=== PATIENT | female | born 1935 | race Caucasian/White ===

== ENCOUNTER 2018-02-06 10:17 | Emergency (ER) | payer OTHER ==
[~2018-02-06] VITALS: Ht 157.5 cm; Wt 72.6 kg
[~2018-02-06 10:17] MED LIST: ALBU3IS INH; ALLO300; ALLO300 PO; ALPR.25 PO; AMLO5 PO; CELE100 PO; CEPH500 PO; CHOL10002 PO; CITA20; CITA20 PO; COLC.6; COMBIVENT INHALER INH; COMBIVENT RESPIM4 GM IH; COMBIVENT RESPIM4 GM INH; CONESTTC VAG; COUMADIN; COUMADIN PO; CRUTCH4 USE; DOC250 PO; DULERA 100 MCG/13 GM IH; ENOX60I SC; ERGO400 PO; ERYT.5TO BOTHEYES; ESCI10 PO; EZET10; FENT25TP; FENT25TP TOP; FENT50TP; FENT50TP TOP; FIBER GUMMIES1 EACH PO; FLONASE ALLERG9.9 ML; FOLI1; FOLI1 PO; HYDACE10B PO; HYDACE5; HYDACE5 PO; HYOS0.375T PO; LAVAP17G PO; LEVFLO500 PO; LEVO750 PO; LEVOTHYROXIN; LEVSOD100; LEVSOD25; LEVSOD75 PO; LORA.5; LORA1; LORCET HD 10-31 EACH PO; MAG 64 PO; MAGCHL64ER PO; MAGN84 PO; MECL12.5 PO; MECL25; MECL25 PO; METH5; MISO100; Mucinex600 MG PO; NAPR500; NEBI10 PO; OMEP20ER; OMEP20ER PO; POLY17UD PO; POTA10T PO; POTCHL20ER; POTCHL20ER PO; PRAM.125; PRAM.5 PO; PRAV20 PO; PRED10 PO; PROM25; PROM25 PO; PROP10 PO; PROP40; Pravachol40 MG PO; Prilosec Otc20 MG PO; QUIN325; ROSU5 PO; TRAM50 PO; TRAZ50; TRAZ50 PO; TRIA80TC TOP; TRIHYD; VALS80 PO; WARF1; WARF1 PO; WARF10 PO; WARF4; WARF4 PO; WARF5; WARF5 PO; WARF6 PO
[2018-09-29] MEDS ORDERED: PROM25 PO (19:22)
[2018-09-29] MEDS ORDERED: MECL12.5 PO (19:22)
[2018-09-29] MEDS ORDERED: COMBIVENT RESPIM4 GM INH (19:23)
[2018-09-29] MEDS ORDERED: CHOL10002 PO (19:26)
[2018-09-29] MEDS ORDERED: TRAZ50 PO (19:27)
[2018-10-01] MEDS ORDERED: FENTANYL1 EAC1 TOP (11:04)
[2018-10-01] MEDS ORDERED: CEFP200 PO (11:07)
== END 2018-02-06 12:25 | disposition home or self-care (01) ==
LOC: ER 10:17
DX: S80.01XA Contusion of right knee, initial encounter (principal); Z88.0 Allergy status to penicillin; Z88.6 Allergy status to analgesic agent; Z88.5 Allergy status to narcotic agent; Z88.8 Allergy status to other drugs, medicaments and biological substances; Z79.899 Other long term (current) drug therapy; Z79.01 Long term (current) use of anticoagulants; Z87.891 Personal history of nicotine dependence; W01.0XXA Fall on same level from slipping, tripping and stumbling without subsequent striking against object, initial encounter
CPT/HCPCS: 73552; 73562-RT; 99283

== ENCOUNTER 2018-05-10 19:26 | Inpatient (IN) | payer OTHER ==
[~2018-05-10] VITALS: Ht 157.5 cm; Wt 59.5 kg
[2018-05-10 20:11] LABS: Alanine Aminotransfer (ALT/SGP 15 U/L (12-78); Albumin, Blood 3.5 g/dL (3.4-5.0); Albumin/Globulin Ratio 1.1 (0.8-1.8); Alk Phos 107 U/L (50-136); Anion Gap 5 mmol/L (6-16); Aspartate Aminotrans (AST/SGOT 16 U/L (12-37); Bilirubin, Total 0.6 mg/dL (0.1-1.0); Blood Urea Nitrogen 22 mg/dL (8-24); Bun/Creatinine Ratio 26.5 (12.0-20.0); CO2, Blood 35 mmol/L (21-32); Calcium, Blood 8.6 mg/dL (8.5-10.1); Chloride, Blood 101 mmol/L (98-108); Creatinine, Blood 0.83 mg/dL (0.40-1.00); Globulin, Blood 3.2 g/dL (2.2-4.0); Glomerular Filtration Rate >60 (60-); Glucose, Blood 154 mg/dL (70-99); Potassium, Blood 3.8 mmol/L (3.5-5.5); Sodium, Blood 141 mmol/L (136-145); Total Protein, Blood 6.7 g/dL (6.4-8.2)
[2018-05-10 20:16] LABS: BASOPHILS ABSOLUTE AUTO 0.01 K/mm3 (0.00-0.23); BASOPHILS PERCENT AUTO 0 % (0-2); EOSINOPHILS ABSOLUTE AUTO 0.36 K/mm3 (0.00-0.68); EOSINOPHILS PERCENT AUTO 4 % (0-6); Hematocrit 35.8 % (33.0-51.0); Hemoglobin 11.1 g/dL (11.5-16.0); IMMATURE GRAN ABSOLUTE AUTO 0.02 K/mm3 (0.00-0.10); IMMATURE GRAN PERCENT AUTO 0 % (0-1); LYMPHOCYTES ABSOLUTE AUTO 1.04 K/mm3 (0.84-5.20); LYMPHOCYTES PERCENT AUTO 13 % (21-46); MONOCYTES ABSOLUTE AUTO 0.39 K/mm3 (0.16-1.47); MONOCYTES PERCENT AUTO 5 % (4-13); Mean Corpuscular HGB 30.3 pg (26.0-34.0); Mean Corpuscular Volume 98 fL (80-100); Mean Platelet Volume 11.1 fL (9.1-12.4); NEUTROPHILS ABSOLUTE AUTO 6.47 K/mm3 (1.96-9.15); NEUTROPHILS PERCENT AUTO 78 % (41-73); Platelet Count 98 K/mm3 (150-400); RDW Standard Deviation 46.5 fL (35.1-46.3); Red Blood Cell Count 3.66 M/mm3 (3.80-5.20); White Blood Cell Count 8.29 K/mm3 (4.00-11.30)
[2018-05-10 20:32] LABS: International Normalized Ratio 2.31; Prothrombin Time Results 22.7 Sec (9.7-11.5)
[2018-05-11 11:49] LABS: International Normalized Ratio 1.68; Prothrombin Time Results 16.8 Sec (9.7-11.5)
[2018-05-12 05:36] LABS: BASOPHILS ABSOLUTE AUTO 0.02 K/mm3 (0.00-0.23); BASOPHILS PERCENT AUTO 0 % (0-2); EOSINOPHILS ABSOLUTE AUTO 0.35 K/mm3 (0.00-0.68); EOSINOPHILS PERCENT AUTO 5 % (0-6); Hematocrit 30.1 % (33.0-51.0); Hemoglobin 9.3 g/dL (11.5-16.0); IMMATURE GRAN ABSOLUTE AUTO 0.03 K/mm3 (0.00-0.10); IMMATURE GRAN PERCENT AUTO 1 % (0-1); LYMPHOCYTES ABSOLUTE AUTO 1.05 K/mm3 (0.84-5.20); LYMPHOCYTES PERCENT AUTO 16 % (21-46); MONOCYTES ABSOLUTE AUTO 0.39 K/mm3 (0.16-1.47); MONOCYTES PERCENT AUTO 6 % (4-13); Mean Corpuscular HGB 30.7 pg (26.0-34.0); Mean Corpuscular HGB Conc 30.9 g/dL (31.5-36.5); Mean Corpuscular Volume 99 fL (80-100); Mean Platelet Volume 11.2 fL (9.1-12.4); NEUTROPHILS ABSOLUTE AUTO 4.79 K/mm3 (1.96-9.15); NEUTROPHILS PERCENT AUTO 72 % (41-73); Platelet Count 70 K/mm3 (150-400); RDW Standard Deviation 46.9 fL (35.1-46.3); Red Blood Cell Count 3.03 M/mm3 (3.80-5.20); White Blood Cell Count 6.63 K/mm3 (4.00-11.30)
[2018-05-13 04:44] LABS: BASOPHILS ABSOLUTE AUTO 0.03 K/mm3 (0.00-0.23); BASOPHILS PERCENT AUTO 1 % (0-2); EOSINOPHILS ABSOLUTE AUTO 0.46 K/mm3 (0.00-0.68); EOSINOPHILS PERCENT AUTO 7 % (0-6); Hematocrit 30.2 % (33.0-51.0); Hemoglobin 9.4 g/dL (11.5-16.0); IMMATURE GRAN ABSOLUTE AUTO 0.01 K/mm3 (0.00-0.10); IMMATURE GRAN PERCENT AUTO 0 % (0-1); LYMPHOCYTES PERCENT AUTO 22 % (21-46); MONOCYTES ABSOLUTE AUTO 0.51 K/mm3 (0.16-1.47); MONOCYTES PERCENT AUTO 8 % (4-13); Mean Corpuscular HGB 30.2 pg (26.0-34.0); Mean Corpuscular HGB Conc 31.1 g/dL (31.5-36.5); Mean Corpuscular Volume 97 fL (80-100); Mean Platelet Volume 11.1 fL (9.1-12.4); NEUTROPHILS ABSOLUTE AUTO 3.83 K/mm3 (1.96-9.15); NEUTROPHILS PERCENT AUTO 61 % (41-73); Platelet Count 85 K/mm3 (150-400); RDW Standard Deviation 45.9 fL (35.1-46.3); Red Blood Cell Count 3.11 M/mm3 (3.80-5.20); White Blood Cell Count 6.24 K/mm3 (4.00-11.30)
== END 2018-05-13 13:55 | DRG 481 ==
LOC: ER 19:26 → SURS 22:10
PROVIDERS: Emergency Medicine; Internal Medicine; Orthopaedic Surgery
PROC: 0QH634Z Insertion of Internal Fixation Device into Right Upper Femur, Percutaneous Approach (ICD-10-PCS; principal; 2018-05-11 14:15)
DX: S72.091A Other fracture of head and neck of right femur, initial encounter for closed fracture (principal); J96.11 Chronic respiratory failure with hypoxia; I50.30 Unspecified diastolic (congestive) heart failure; W19.XXXA Unspecified fall, initial encounter; J44.9 Chronic obstructive pulmonary disease, unspecified; Z99.81 Dependence on supplemental oxygen; I11.0 Hypertensive heart disease with heart failure; E03.9 Hypothyroidism, unspecified; B19.20 Unspecified viral hepatitis C without hepatic coma; G47.33 Obstructive sleep apnea (adult) (pediatric); E78.5 Hyperlipidemia, unspecified; K21.9 Gastro-esophageal reflux disease without esophagitis; I73.9 Peripheral vascular disease, unspecified; Z87.891 Personal history of nicotine dependence; Z79.01 Long term (current) use of anticoagulants
CPT/HCPCS: 36415; 70450; 72192; 73552; 80053; 85025; 85610; 86900; 86901; 93005; 93010; 94762; 97110; 97116; 97162; 97165; 97530; 97535; 99285; C1713; C1769; G8978; G8979; G8987; G8988; J0690; J3010; J7030; J7120

== ENCOUNTER 2018-07-13 17:06 | Emergency (ER) | payer OTHER ==
[~2018-07-13] VITALS: Ht 157.5 cm; Wt 67.6 kg
[2018-07-13 17:51] LABS: BASOPHILS ABSOLUTE AUTO 0.03 K/mm3 (0.00-0.23); BASOPHILS PERCENT AUTO 0 % (0-2); EOSINOPHILS ABSOLUTE AUTO 0.09 K/mm3 (0.00-0.68); EOSINOPHILS PERCENT AUTO 1 % (0-6); Hematocrit 34.2 % (33.0-51.0); Hemoglobin 10.9 g/dL (11.5-16.0); IMMATURE GRAN ABSOLUTE AUTO 0.01 K/mm3 (0.00-0.10); IMMATURE GRAN PERCENT AUTO 0 % (0-1); LYMPHOCYTES ABSOLUTE AUTO 2.17 K/mm3 (0.84-5.20); LYMPHOCYTES PERCENT AUTO 29 % (21-46); MONOCYTES ABSOLUTE AUTO 0.62 K/mm3 (0.16-1.47); MONOCYTES PERCENT AUTO 8 % (4-13); Mean Corpuscular HGB 30.7 pg (26.0-34.0); Mean Corpuscular HGB Conc 31.9 g/dL (31.5-36.5); Mean Corpuscular Volume 96 fL (80-100); Mean Platelet Volume 11.3 fL (9.1-12.4); NEUTROPHILS ABSOLUTE AUTO 4.53 K/mm3 (1.96-9.15); NEUTROPHILS PERCENT AUTO 61 % (41-73); Platelet Count 143 K/mm3 (150-400); RDW Coefficient Variation 12.8 % (11.7-14.2); RDW Standard Deviation 45.6 fL (35.1-46.3); Red Blood Cell Count 3.55 M/mm3 (3.80-5.20); White Blood Cell Count 7.45 K/mm3 (4.00-11.30)
[2018-07-13 18:04] LABS: Albumin, Blood 3.2 g/dL (3.4-5.0); Albumin/Globulin Ratio 1.1 (0.8-1.8); Bilirubin, Total 0.2 mg/dL (0.1-1.0); Calcium, Blood 8.4 mg/dL (8.5-10.1); Creatinine, Blood 1.84 mg/dL (0.40-1.00); International Normalized Ratio 2.54; Potassium, Blood 4.8 mmol/L (3.5-5.5); Prothrombin Time Results 24.8 Sec (9.7-11.5); Total Protein, Blood 6.2 g/dL (6.4-8.2)
[2018-07-13 18:23] LABS: Source, Urine Clean Catch
[2018-07-13 18:26] LABS: Appearance, Urine Hazy (Clear); Bilirubin, Urine Neg (Neg); Blood, Urine 1+ (Neg); Color, Urine Yellow (P-Yellow); Glucose Qualitative, Urine Neg (Neg); Ketones, Urine Neg (Neg); Leukocyte Esterase, Urine 3+ (Neg); Nitrite, Urine Neg (Neg); Protein, Urine 1+ (Neg); Specific Gravity, Urine 1.015 (1.003-1.022); Urobilinogen, Urine 1+ (Normal)
[2018-07-13 18:34] LABS: Bacteria Many /hpf; Squamous Epithelial Cells Few /hpf (Few); White Blood Cells, Urine 25-50 /hpf (0-5)
[2018-07-13] MEDS ORDERED: CEPH500 PO (19:03)
== END 2018-07-13 19:54 | disposition home or self-care (01) ==
LOC: ER 17:06
PROVIDERS: Emergency Medicine
DX: N39.0 Urinary tract infection, site not specified (principal); Z88.0 Allergy status to penicillin; Z88.6 Allergy status to analgesic agent; Z88.5 Allergy status to narcotic agent; Z88.1 Allergy status to other antibiotic agents; Z88.8 Allergy status to other drugs, medicaments and biological substances; Z79.899 Other long term (current) drug therapy; Z79.01 Long term (current) use of anticoagulants; Z87.891 Personal history of nicotine dependence
CPT/HCPCS: 80053; 81001; 85025; 85610; 85730; 87077; 87086; 87186; 93005; 93010; 96374; 99285-25; J0696

== ENCOUNTER → 2018-11-30 | Outpatient (CLI) | payer OTHER ==
[~2018-11-30] MED LIST changes: +CEFP200 PO; +FENTANYL1 EAC1 TOP
[2018-11-30 12:02] LABS: Alanine Aminotransfer (ALT/SGP 11 U/L (12-78); Albumin, Blood 3.4 g/dL (3.4-5.0); Albumin/Globulin Ratio 1.3 (0.8-1.8); Alk Phos 98 U/L (50-136); Anion Gap 3 mmol/L (6-16); Aspartate Aminotrans (AST/SGOT 12 U/L (12-37); Bilirubin, Total 0.3 mg/dL (0.1-1.0); Blood Urea Nitrogen 23 mg/dL (8-24); Bun/Creatinine Ratio 24.6 (12.0-20.0); CO2, Blood 35 mmol/L (21-32); Calcium, Blood 8.6 mg/dL (8.5-10.1); Chloride, Blood 103 mmol/L (98-108); Creatinine, Blood 0.93 mg/dL (0.40-1.00); Globulin, Blood 2.7 g/dL (2.2-4.0); Glomerular Filtration Rate >60 (60-); Glucose, Blood 98 mg/dL (70-99); Potassium, Blood 4.1 mmol/L (3.5-5.5); Sodium, Blood 141 mmol/L (136-145); Total Protein, Blood 6.1 g/dL (6.4-8.2)
== END | disposition home or self-care (01) ==
LOC: LAB 11:34 → LAB SHORT 11:34
PROVIDERS: Internal Medicine Hematology & Oncology
DX: M81.0 Age-related osteoporosis without current pathological fracture (principal)
CPT/HCPCS: 80053

== ENCOUNTER → 2019-05-19 | Outpatient (CLI) | payer OTHER ==
[2019-05-19 17:11] LABS: Source, Urine Clean Catch
[2019-05-19 17:49] LABS: Bilirubin, Urine Neg (Neg); Blood, Urine 2+ (Neg); Glucose Qualitative, Urine Neg (Neg); Ketones, Urine Neg (Neg); Leukocyte Esterase, Urine Neg (Neg); Nitrite, Urine Neg (Neg); Protein, Urine Neg (Neg); Urobilinogen, Urine NORM (Normal)
[2019-05-19 18:01] LABS: Appearance, Urine Clear (Clear); Color, Urine Pale Yellow (P-Yellow)
[2019-05-19 18:04] LABS: Bacteria Not Seen /hpf; Red Blood Cells, Urine 0-2 /hpf (0-2); Renal Epithelial Few /hpf ({null, 0-Rare}); Squamous Epithelial Cells Mod /hpf (Few); Transitional Epithelial Cells Few /hpf ({null, 0-Rare}); White Blood Cells, Urine 0-2 /hpf (0-5)
== END | disposition home or self-care (01) ==
LOC: LAB SHORT 16:00 → LAB 16:00 → LAB FUT 05-09 13:15
PROVIDERS: Internal Medicine
DX: N39.0 Urinary tract infection, site not specified (principal)
CPT/HCPCS: 81001

== ENCOUNTER 2020-01-07 10:58 | Emergency (ER) | payer OTHER ==
[~2020-01-07] VITALS: Ht 152.4 cm; Wt 70.8 kg
[2020-01-07 12:01] LABS: BASOPHILS ABSOLUTE AUTO 0.02 K/mm3 (0.00-0.23); BASOPHILS PERCENT AUTO 0 % (0-2); EOSINOPHILS ABSOLUTE AUTO 0.05 K/mm3 (0.00-0.68); EOSINOPHILS PERCENT AUTO 1 % (0-6); Hemoglobin 9.2 g/dL (11.5-16.0); IMMATURE GRAN ABSOLUTE AUTO 0.03 K/mm3 (0.00-0.10); IMMATURE GRAN PERCENT AUTO 0 % (0-1); LYMPHOCYTES ABSOLUTE AUTO 1.26 K/mm3 (0.84-5.20); LYMPHOCYTES PERCENT AUTO 18 % (21-46); MONOCYTES ABSOLUTE AUTO 0.66 K/mm3 (0.16-1.47); MONOCYTES PERCENT AUTO 9 % (4-13); Mean Corpuscular HGB 30.8 pg (26.0-34.0); Mean Corpuscular HGB Conc 28.8 g/dL (31.5-36.5); Mean Corpuscular Volume 107 fL (80-100); Mean Platelet Volume 11.3 fL (9.1-12.4); NEUTROPHILS ABSOLUTE AUTO 4.98 K/mm3 (1.96-9.15); NEUTROPHILS PERCENT AUTO 71 % (41-73); Platelet Count 146 K/mm3 (150-400); RDW Coefficient Variation 13.2 % (11.7-14.2); RDW Standard Deviation 52.1 fL (35.1-46.3); Red Blood Cell Count 2.99 M/mm3 (3.80-5.20)
[2020-01-07 12:21] LABS: Alanine Aminotransfer (ALT/SGP 11 U/L (12-78); Albumin/Globulin Ratio 0.9 (0.8-1.8); Alk Phos 92 U/L (50-136); Anion Gap 1 mmol/L (6-16); Aspartate Aminotrans (AST/SGOT 22 U/L (12-37); Bilirubin, Total 0.4 mg/dL (0.1-1.0); Blood Urea Nitrogen 22 mg/dL (8-24); Bun/Creatinine Ratio 12.8 (12.0-20.0); CO2, Blood 29 mmol/L (21-32); Calcium, Blood 8.1 mg/dL (8.5-10.1); Chloride, Blood 110 mmol/L (98-108); Creatinine, Blood 1.72 mg/dL (0.40-1.00); Globulin, Blood 3.2 g/dL (2.2-4.0); Glomerular Filtration Rate 30 (60-); Glucose, Blood 101 mg/dL (70-99); Potassium, Blood 5.7 mmol/L (3.5-5.5); Sodium, Blood 140 mmol/L (136-145); Total Protein, Blood 6.2 g/dL (6.4-8.2); Troponin I <0.015 ng/mL (0.000-0.040)
[2020-01-07 12:31] LABS: Source, Urine Clean Catch
[2020-01-07 12:36] LABS: Bilirubin, Urine Neg (Neg); Blood, Urine 4+ (Neg); Glucose Qualitative, Urine Neg (Neg); Ketones, Urine Neg (Neg); Leukocyte Esterase, Urine Neg (Neg); Nitrite, Urine Neg (Neg); Protein, Urine 3+ (Neg); Specific Gravity, Urine 1.015 (1.003-1.022); Urobilinogen, Urine 1+ (Normal)
[2020-01-07 12:38] LABS: Appearance, Urine Hazy (Clear); Color, Urine Yellow (P-Yellow)
[2020-01-07 12:50] LABS: Amorphous Light (0-Heavy); Bacteria Few /hpf; Red Blood Cells, Urine 25-50 /hpf (0-2); Squamous Epithelial Cells Few /hpf (Few)
[2020-01-07 12:51] LABS: Transitional Epithelial Cells Mod /hpf (0-Rare)
[2020-01-07 13:54] LABS: International Normalized Ratio 2.67
[2020-01-07] MEDS ORDERED: CEFD300 PO (14:22)
== END 2020-01-07 16:17 | disposition home or self-care (01) ==
LOC: ER 10:58
PROVIDERS: Emergency Medicine
DX: E87.5 Hyperkalemia (principal); E86.0 Dehydration; N39.0 Urinary tract infection, site not specified; Z88.0 Allergy status to penicillin; Z79.899 Other long term (current) drug therapy; Z87.891 Personal history of nicotine dependence
CPT/HCPCS: 36415; 80053; 81001; 84484; 85025; 85610; 87086; 93005; 93010; 96361; 96365; 96366; 99284-25; J0696; J7030

== ENCOUNTER 2020-01-11 18:32 | Observation (INO) | payer OTHER ==
[~2020-01-11] VITALS: Ht 152.4 cm; Wt 73.7 kg
[~2020-01-11 18:32] MED LIST changes: +CEFD300 PO
[2020-01-11 22:21] LABS: Source, Urine Clean Catch
[2020-01-11 22:25] LABS: Bilirubin, Urine Neg (Neg); Blood, Urine 2+ (Neg); Glucose Qualitative, Urine 2+ (Neg); Ketones, Urine Neg (Neg); Leukocyte Esterase, Urine Neg (Neg); Nitrite, Urine Neg (Neg); Protein, Urine 3+ (Neg); Urobilinogen, Urine NORM (Normal)
[2020-01-11 22:34] LABS: Appearance, Urine Hazy (Clear); Color, Urine Yellow (P-Yellow)
[2020-01-11 22:36] LABS: Amorphous Mod (0-Heavy); Bacteria Few /hpf; Red Blood Cells, Urine 0-2 /hpf (0-2); Squamous Epithelial Cells Rare /hpf (Few); White Blood Cells, Urine 0-2 /hpf (0-5)
[2020-01-11 23:07] LABS: BASOPHILS ABSOLUTE AUTO 0.02 K/mm3 (0.00-0.23); BASOPHILS PERCENT AUTO 0 % (0-2); EOSINOPHILS ABSOLUTE AUTO 0.05 K/mm3 (0.00-0.68); EOSINOPHILS PERCENT AUTO 1 % (0-6); Hematocrit 30.6 % (33.0-51.0); Hemoglobin 9.1 g/dL (11.5-16.0); IMMATURE GRAN ABSOLUTE AUTO 0.03 K/mm3 (0.00-0.10); IMMATURE GRAN PERCENT AUTO 1 % (0-1); LYMPHOCYTES ABSOLUTE AUTO 1.43 K/mm3 (0.84-5.20); LYMPHOCYTES PERCENT AUTO 23 % (21-46); MONOCYTES ABSOLUTE AUTO 0.52 K/mm3 (0.16-1.47); MONOCYTES PERCENT AUTO 8 % (4-13); Mean Corpuscular HGB 31.2 pg (26.0-34.0); Mean Corpuscular HGB Conc 29.7 g/dL (31.5-36.5); Mean Corpuscular Volume 105 fL (80-100); Mean Platelet Volume 10.9 fL (9.1-12.4); NEUTROPHILS ABSOLUTE AUTO 4.11 K/mm3 (1.96-9.15); NEUTROPHILS PERCENT AUTO 67 % (41-73); Platelet Count 148 K/mm3 (150-400); RDW Coefficient Variation 13.1 % (11.7-14.2); RDW Standard Deviation 49.9 fL (35.1-46.3); Red Blood Cell Count 2.92 M/mm3 (3.80-5.20); White Blood Cell Count 6.16 K/mm3 (4.00-11.30)
[2020-01-11 23:26] LABS: Bilirubin, Total 0.4 mg/dL (0.1-1.0); Bun/Creatinine Ratio 6.9 (12.0-20.0); Calcium, Blood 8.5 mg/dL (8.5-10.1); Creatinine, Blood 2.16 mg/dL (0.40-1.00); Potassium, Blood 4.8 mmol/L (3.5-5.5)
[2020-01-12 01:40] LABS: Prothrombin Time Results 56.1 Sec (9.7-11.5)
[2020-01-12 01:43] LABS: International Normalized Ratio 5.79
--- NOTE | 2020-01-12 06:55 | NUR ---
recvd report from previous shift RN Todd, alireza lying in bed, a/o x 4, pleasant/cooperative, call light within reach, bed rails up x 2, bed in lowest position
--- NOTE | 2020-01-12 07:49 | NUR ---
SHIFT SUMMARY PT NEW ADMIT THIS AM. AAOX4. CHRONIC BACK PAIN CONTROLLED WITH 25mcg FENTANYL X1 THIS AM. NO NAUSEA/EMESIS. HOME MEDICATION LIST TO BE VERIFIED BY CAREGIVER UPON RETURN THIS AM. IVF PER ORDERS. PT UP TO BSC WITH FWW, MODERATE ONE PERSON ASSIST. PT RESTING AT THIS TIME IN BED, NADN, WITH CALL LIGHT IN REACH. REPORT TO DAY SHIFT RN.
[2020-01-12 08:09] LABS: Hematocrit 27.8 % (33.0-51.0); Hemoglobin 8.3 g/dL (11.5-16.0); Mean Corpuscular HGB Conc 29.9 g/dL (31.5-36.5); Mean Corpuscular Volume 104 fL (80-100); Mean Platelet Volume 10.9 fL (9.1-12.4); Platelet Count 128 K/mm3 (150-400); RDW Standard Deviation 49.4 fL (35.1-46.3); Red Blood Cell Count 2.68 M/mm3 (3.80-5.20); White Blood Cell Count 5.19 K/mm3 (4.00-11.30)
[2020-01-12 08:26] LABS: Albumin, Blood 2.7 g/dL (3.4-5.0); Albumin/Globulin Ratio 0.9 (0.8-1.8); Bilirubin, Total 0.3 mg/dL (0.1-1.0); Bun/Creatinine Ratio 6.6 (12.0-20.0); Calcium, Blood 8.3 mg/dL (8.5-10.1); Creatinine, Blood 1.96 mg/dL (0.40-1.00); Globulin, Blood 2.9 g/dL (2.2-4.0); Total Protein, Blood 5.6 g/dL (6.4-8.2)
[2020-01-12] MEDS ORDERED: Vitamin D2000 UNIT PO (10:55)
[2020-01-12] MEDS ORDERED: COMBIVENT RESPIM4 GM INH (10:57)
[2020-01-12] MEDS ORDERED: LEVSOD75 PO (10:58)
[2020-01-12] MEDS ORDERED: LEVSOD100 PO (10:58)
[2020-01-12] MEDS ORDERED: PRAM.125 PO (11:00)
[2020-01-12] MEDS ORDERED: PRAM.5 PO (11:01)
[2020-01-12] MEDS ORDERED: TRAZ50 PO (11:02)
[2020-01-12] MEDS ORDERED: HYOS0.375T PO (11:03)
[2020-01-12] MEDS ORDERED: MIRALAX17 GM PO (11:04)
[2020-01-12] MEDS ORDERED: POTCHL20ER PO (11:05)
[2020-01-12] MEDS ORDERED: IRBE75 PO (11:05)
--- NOTE | 2020-01-12 18:34 | NUR ---
shift summary: vss, no acute changes. pt remained a/o x 4, pleasant/cooperative. pt worked with PT, able to transfer to bedside commode with gait belt and fww. pt tolerated PO intake no n/v. pt's caregiver/friend here a large portion of this shift, provided home med rec and updates. urine output >500 ml this shift. PT had liquid stool x 4 this shift. pt on 2.5L NC with SPO2 >90%
--- NOTE | 2020-01-13 04:29 | NUR ---
SHIFT SUMMARY NO ACUTE CHANGES THIS SHIFT. PT A/OX4 WITH VSS, ON 2.5L NC W/ SPO2> 90%. MEDICATED X1 FOR CHRONIC BACK/LEG PAIN. ABLE TO TRANSFER FROM BED TO C W/FWW AND GB. TOLERATING PO INTAKE, DENIES N/V. IS CURRENTLY WATCHING TV IN BED WITH CALL LIGHT IN REACH. ODALIS CONT TO MONITOR AND GIVE REPORT TO ONCOMING RN.
[2020-01-13 05:56] LABS: Bun/Creatinine Ratio 10.4 (12.0-20.0); Calcium, Blood 8.7 mg/dL (8.5-10.1); Creatinine, Blood 1.64 mg/dL (0.40-1.00); Potassium, Blood 3.2 mmol/L (3.5-5.5)
[2020-01-13 06:08] LABS: International Normalized Ratio 2.06; Prothrombin Time Results 21.2 Sec (9.7-11.5)
== END 2020-01-13 15:00 | disposition home or self-care (01) ==
LOC: ER 18:32 → SURS 18:33
PROVIDERS: Emergency Medicine; Hospitalist; ADMIT Internal Medicine
DX: N17.9 Acute kidney failure, unspecified (principal); I12.9 Hypertensive chronic kidney disease with stage 1 through stage 4 chronic kidney disease, or unspecified chronic kidney disease; N18.3 Chronic kidney disease, stage 3 (moderate); J44.9 Chronic obstructive pulmonary disease, unspecified; E03.9 Hypothyroidism, unspecified; Z79.899 Other long term (current) drug therapy; Z88.0 Allergy status to penicillin; Z88.5 Allergy status to narcotic agent; Z88.8 Allergy status to other drugs, medicaments and biological substances; M19.90 Unspecified osteoarthritis, unspecified site
CPT/HCPCS: 36415; 73502; 76770; 80048; 80053; 81001; 83880; 85025; 85027; 85610; 94640; 94760; 96360; 96361; 96374; 96376; 97110; 97161; 97530; 99284-25; A9270-GY; G0378; J3010; J7030

== ENCOUNTER 2020-05-09 01:41 | Emergency (ER) | payer OTHER ==
[~2020-05-09] VITALS: Ht 157.5 cm; Wt 68.0 kg
[~2020-05-09 01:41] MED LIST changes: +IRBE75 PO; +LEVSOD100 PO; +MIRALAX17 GM PO; +PRAM.125 PO; +Vitamin D2000 UNIT PO
[2020-05-09] MEDS ORDERED: ALPR.5 PO (01:51)
[2020-05-09] MEDS ORDERED: NEBI10 PO (01:52)
[2020-05-09] MEDS ORDERED: CELE100 PO (01:53)
[2020-05-09] MEDS ORDERED: DULERA 100 MCG/13 GM INH (01:54)
[2020-05-09] MEDS ORDERED: ESCI10 PO (01:55)
[2020-05-09] MEDS ORDERED: HYDACE10B PO (01:56)
[2020-05-09] MEDS ORDERED: MECL25 PO (01:57)
[2020-05-09] MEDS ORDERED: PROM25 PO (01:58)
[2020-05-09] MEDS ORDERED: VALS80 PO (01:59)
[2020-05-09] MEDS ORDERED: AMLO5 PO (02:00)
== END 2020-05-09 04:36 | disposition home or self-care (01) ==
LOC: ER 01:41
DX: M25.552 Pain in left hip (principal); Z79.01 Long term (current) use of anticoagulants; Z87.891 Personal history of nicotine dependence; W06.XXXA Fall from bed, initial encounter
CPT/HCPCS: 73030; 73502; 99283-25

== ENCOUNTER → 2020-06-09 | Outpatient (CLI) | payer OTHER ==
[~2020-06-09] MED LIST changes: +ALPR.5 PO; +AVAPRO300 MG PO; +B-121000 MC3 PO; +DULERA 100 MCG/13 GM INH; +FENTANYL1 EAC7 TOP; +MAGNESIUM OXID500 MG PO; -PRAV20 PO
[2020-06-11 20:48] LABS: Stool Occult Blood Guaiac 1 Pos (Neg)
[2020-06-11 20:49] LABS: Stool Occult Blood Guaiac 2 Neg (Neg)
== END | disposition home or self-care (01) ==
LOC: LAB 18:10 → LAB SHORT 18:10 → LAB FUT 05-30 11:00
PROVIDERS: Internal Medicine
DX: D64.9 Anemia, unspecified (principal); E78.1 Pure hyperglyceridemia; I48.20 Chronic atrial fibrillation, unspecified; R79.89 Other specified abnormal findings of blood chemistry
CPT/HCPCS: 82272

== ENCOUNTER → 2021-02-14 | Outpatient (CLI) | payer OTHER ==
[~2021-02-14] MED LIST changes: +ERYT1OIN BOTHEYES; +MELA3 PO
[2021-02-14 12:42] LABS: Source, Urine Clean Catch
[2021-02-14 14:14] LABS: Appearance, Urine Hazy (Clear); Bilirubin, Urine Neg (Neg); Blood, Urine 3+ (Neg); Color, Urine Yellow (P-Yellow); Glucose Qualitative, Urine Neg (Neg); Ketones, Urine Neg (Neg); Leukocyte Esterase, Urine 2+ (Neg); Nitrite, Urine Neg (Neg); Protein, Urine 1+ (Neg); Specific Gravity, Urine 1.005 (1.003-1.022); Urobilinogen, Urine NORM (Normal)
[2021-02-14 14:21] LABS: White Blood Cells, Urine 50-100 /hpf (0-5)
[2021-02-14 14:22] LABS: Bacteria Many /hpf; Squamous Epithelial Cells Few /hpf (Few)
[2021-02-14 14:24] LABS: Transitional Epithelial Cells Few /hpf (0-Rare)
== END | disposition home or self-care (01) ==
LOC: EDSTATUS 08:42 → LAB 12:40 → LAB SHORT 12:40
PROVIDERS: Internal Medicine
DX: R30.0 Dysuria (principal)
CPT/HCPCS: 81001; 87077; 87086; 87186

== ENCOUNTER 2021-04-20 17:08 | Emergency (ER) | payer OTHER ==
[~2021-04-20] VITALS: Ht 157.5 cm; Wt 66.7 kg
[~2021-04-20 17:08] MED LIST changes: -ERYT1OIN BOTHEYES; -MELA3 PO
[2021-04-20] MEDS ORDERED: MELA3 PO (17:36)
[2021-04-20] MEDS ORDERED: PRAM.5 PO (17:36)
[2021-04-20] MEDS ORDERED: MECL25 PO (17:36)
[2021-04-20] MEDS ORDERED: ALLO300 PO (17:36)
[2021-04-20] MEDS ORDERED: ERYT1OIN BOTHEYES (17:37)
[2021-04-20] MEDS ORDERED: CELE100 PO (17:38)
[2021-04-20] MEDS ORDERED: HYOS0.375T PO (17:38)
[2021-04-20 18:25] LABS: International Normalized Ratio 2.65; Prothrombin Time Results 27.1 Sec (9.7-11.5)
== END 2021-04-20 19:55 | disposition home or self-care (01) ==
LOC: ER 17:08
PROVIDERS: Student in an Organized Health Care Education/Training Program
DX: M79.605 Pain in left leg (principal); M79.604 Pain in right leg; I12.9 Hypertensive chronic kidney disease with stage 1 through stage 4 chronic kidney disease, or unspecified chronic kidney disease; N18.30 Chronic kidney disease, stage 3 unspecified; J44.9 Chronic obstructive pulmonary disease, unspecified; E03.9 Hypothyroidism, unspecified; Z79.01 Long term (current) use of anticoagulants; Z87.891 Personal history of nicotine dependence; Z88.0 Allergy status to penicillin; Z88.6 Allergy status to analgesic agent; Z88.5 Allergy status to narcotic agent; Z88.8 Allergy status to other drugs, medicaments and biological substances; Z79.899 Other long term (current) drug therapy
CPT/HCPCS: 85610; 96374; 99284-25; J1885

== ENCOUNTER → 2021-05-13 | Outpatient (CLI) | payer OTHER ==
[~2021-05-13] MED LIST changes: +ERYT1OIN BOTHEYES; +MELA3 PO
[2021-05-13 11:27] LABS: Sodium, Urine, Random 37 mmol/L (20-110)
[2021-05-13 13:06] LABS: Osmolality, Urine 294 mos/kg (15-1400)
== END | disposition home or self-care (01) ==
LOC: LAB 08:12 → LAB SHORT 08:12
PROVIDERS: Internal Medicine
DX: E87.1 Hypo-osmolality and hyponatremia (principal); I48.0 Paroxysmal atrial fibrillation
CPT/HCPCS: 83935; 84300

== ENCOUNTER 2021-06-05 18:33 | Emergency (ER) | payer OTHER ==
[~2021-06-05] VITALS: Ht 157.5 cm; Wt 73.9 kg
[2021-06-05 19:06] LABS: BASOPHILS ABSOLUTE AUTO 0.04 K/mm3 (0.00-0.23); BASOPHILS PERCENT AUTO 1 % (0-2); EOSINOPHILS ABSOLUTE AUTO 0.05 K/mm3 (0.00-0.68); EOSINOPHILS PERCENT AUTO 1 % (0-6); Hematocrit 31.7 % (33.0-51.0); Hemoglobin 10.1 g/dL (11.5-16.0); IMMATURE GRAN ABSOLUTE AUTO 0.02 K/mm3 (0.00-0.10); IMMATURE GRAN PERCENT AUTO 0 % (0-1); LYMPHOCYTES ABSOLUTE AUTO 1.63 K/mm3 (0.84-5.20); LYMPHOCYTES PERCENT AUTO 26 % (21-46); MONOCYTES ABSOLUTE AUTO 0.64 K/mm3 (0.16-1.47); MONOCYTES PERCENT AUTO 10 % (4-13); Mean Corpuscular HGB 30.6 pg (26.0-34.0); Mean Corpuscular HGB Conc 31.9 g/dL (31.5-36.5); Mean Corpuscular Volume 96 fL (80-100); Mean Platelet Volume 9.7 fL (9.1-12.4); NEUTROPHILS ABSOLUTE AUTO 3.84 K/mm3 (1.96-9.15); NEUTROPHILS PERCENT AUTO 62 % (41-73); Platelet Count 215 K/mm3 (150-400); RDW Coefficient Variation 12.8 % (11.7-14.2); RDW Standard Deviation 45.8 fL (35.1-46.3); White Blood Cell Count 6.22 K/mm3 (4.00-11.30)
[2021-06-05 19:22] LABS: Alanine Aminotransfer (ALT/SGP 21 U/L (12-78); Albumin, Blood 3.1 g/dL (3.4-5.0); Albumin/Globulin Ratio 0.9 (0.8-1.8); Alk Phos 82 U/L (50-136); Anion Gap 2 mmol/L (6-16); Aspartate Aminotrans (AST/SGOT 17 U/L (12-37); Bilirubin, Total 0.3 mg/dL (0.1-1.0); Blood Urea Nitrogen 17 mg/dL (8-24); Bun/Creatinine Ratio 22.3 (12.0-20.0); CO2, Blood 31 mmol/L (21-32); Calcium, Blood 9.3 mg/dL (8.5-10.1); Chloride, Blood 104 mmol/L (98-108); Creatinine, Blood 0.76 mg/dL (0.40-1.00); Globulin, Blood 3.5 g/dL (2.2-4.0); Glomerular Filtration Rate >60 (60-); Glucose, Blood 102 mg/dL (70-99); Potassium, Blood 4.3 mmol/L (3.5-5.5); Sodium, Blood 137 mmol/L (136-145); Total Protein, Blood 6.6 g/dL (6.4-8.2); Troponin I <0.015 ng/mL (0.000-0.040)
== END 2021-06-05 20:55 | disposition home or self-care (01) ==
LOC: ER 18:33
PROVIDERS: Emergency Medicine
DX: R07.89 Other chest pain (principal); Z79.01 Long term (current) use of anticoagulants; Z79.899 Other long term (current) drug therapy
CPT/HCPCS: 71045; 80053; 83880; 84484; 85025; 93005; 93010; 96374; 99285-25; J3010

== ENCOUNTER → 2021-12-05 | Outpatient (CLI) | payer OTHER ==
[2021-12-06 13:31] LABS: Stool Occult Blood Guaiac 1 Neg (Neg); Stool Occult Blood Guaiac 2 Neg (Neg)
[2021-12-06 13:32] LABS: Stool Occult Blood Guaiac 3 Neg (Neg)
== END | disposition home or self-care (01) ==
LOC: LAB SHORT 13:36 → LAB FUT 11-25 08:35
PROVIDERS: Internal Medicine
DX: I48.20 Chronic atrial fibrillation, unspecified (principal); D64.9 Anemia, unspecified
CPT/HCPCS: 82270

== ENCOUNTER → 2022-06-29 | Outpatient (CLI) | payer OTHER ==
[2022-06-29 11:32] LABS: Albumin, Blood 3.3 g/dL (3.4-5.0); Bilirubin, Total 0.4 mg/dL (0.1-1.0); Bun/Creatinine Ratio 39.4 (12.0-20.0); Calcium, Blood 9.3 mg/dL (8.5-10.1); Creatinine, Blood 0.86 mg/dL (0.40-1.00); Globulin, Blood 3.3 g/dL (2.2-4.0); Phosphorus, Blood 3.5 mg/dL (2.5-4.9); Potassium, Blood 5.9 mmol/L (3.5-5.5); Total Protein, Blood 6.6 g/dL (6.4-8.2)
== END ==
LOC: LAB 10:16 → LAB SHORT 10:16
PROVIDERS: Internal Medicine Hematology & Oncology
DX: M81.0 Age-related osteoporosis without current pathological fracture (principal)
CPT/HCPCS: 80053; 84100

== ENCOUNTER 2022-07-24 09:04 | Inpatient (IN) | payer OTHER ==
[~2022-07-24] VITALS: Ht 157.5 cm; Wt 81.7 kg
[2022-07-24 10:12] LABS: BASOPHILS ABSOLUTE AUTO 0.04 K/mm3 (0.00-0.23); BASOPHILS PERCENT AUTO 0 % (0-2); EOSINOPHILS ABSOLUTE AUTO 0.07 K/mm3 (0.00-0.68); EOSINOPHILS PERCENT AUTO 1 % (0-6); Hematocrit 36.2 % (33.0-51.0); Hemoglobin 11.7 g/dL (11.5-16.0); IMMATURE GRAN ABSOLUTE AUTO 0.04 K/mm3 (0.00-0.10); IMMATURE GRAN PERCENT AUTO 0 % (0-1); LYMPHOCYTES ABSOLUTE AUTO 2.33 K/mm3 (0.84-5.20); LYMPHOCYTES PERCENT AUTO 24 % (21-46); MONOCYTES ABSOLUTE AUTO 0.69 K/mm3 (0.16-1.47); MONOCYTES PERCENT AUTO 7 % (4-13); Mean Corpuscular HGB 30.2 pg (26.0-34.0); Mean Corpuscular HGB Conc 32.3 g/dL (31.5-36.5); Mean Corpuscular Volume 93 fL (80-100); Mean Platelet Volume 10.1 fL (9.1-12.4); NEUTROPHILS ABSOLUTE AUTO 6.73 K/mm3 (1.96-9.15); NEUTROPHILS PERCENT AUTO 68 % (41-73); Platelet Count 219 K/mm3 (150-400); RDW Coefficient Variation 13.7 % (11.7-14.2); RDW Standard Deviation 46.5 fL (35.1-46.3); Red Blood Cell Count 3.88 M/mm3 (3.80-5.20)
[2022-07-24 10:30] LABS: International Normalized Ratio 1.74; Prothrombin Time Results 17.6 Sec (9.7-11.5)
[2022-07-24 10:31] LABS: Albumin, Blood 3.2 g/dL (3.4-5.0); Bilirubin, Total 0.5 mg/dL (0.1-1.0); Calcium, Blood 9.5 mg/dL (8.5-10.1); Globulin, Blood 3.3 g/dL (2.2-4.0); Potassium, Blood 4.4 mmol/L (3.5-5.5); Total Protein, Blood 6.5 g/dL (6.4-8.2)
--- NOTE | 2022-07-24 15:59 | NUR ---
Spiritual Care Nurse Request Pt. is awake and welcomes my visit. Pt. is unsettled by several things including hospitalization, home and family issues, and the sudden loss of a son. Through theraputic listening and a calming presence Pt. displayed evidence of lower anxiety and the focused desire to recover. Established rapport, and prayed with the Pt. Pt. verbalized gratitude for the spiritual care visit.
--- NOTE | 2022-07-25 06:19 | NUR ---
SHIFT SUMMARY PT ER ADMIT YESTERDAY EVENING FOR SBO. PT HAD QUITE A BIT OF NAUSEA/VOMITTING AND ABDOMINAL DISCOMFORT AT THE START OF THE SHIFT. PT HAS HAD VERY LTTTLE EMESIS, GREENISH IN COLOR. PT MEDICATED FOR PAIN AND NAUSEA PER EMAR ORDERS WITH EFFECT. PT PAIN/NAUSEA CONTINUED TO IMPROVE THE NIGHT PROGRESSED AND PT HAS NOW STARTED TO HAVE BM'S. PT HAS HAD THREE MODERATE TO LARGE BM'S THIS SHIFT STARTING AROUND 0200, AND HAS SINCE THAT TIME BEEN ABLE TO REST COMFORTABLY. PT NPO, IVF INFUSING ORDERED. 1L O2 IN PLACE, O2 REQUIRED PT WOULD DESAT INTO THE UPPER 80'S AFTER RECEIVING NARCOTICS AND FALLING ASLEEP. SATS MAINTAINED IN THE 90'S ON 1L, EROS BIOX IN PLACE. BED IN LOWEST POSITION, CALL LIGHT WITHIN REACH.
--- NOTE | 2022-07-25 07:15 | NUR ---
ASSESSMENT: PT SLEEPING IN BED AT THIS TIME. APPEARS COMFORTABLE. CALL LIGHT IN REACH. WILL ALLOW REST AND ASSESS WHEN PT IS FULLY AWAKE.
[2022-07-25 07:45] LABS: Hematocrit 33.2 % (33.0-51.0); Hemoglobin 10.4 g/dL (11.5-16.0); Mean Corpuscular HGB 30.4 pg (26.0-34.0); Mean Corpuscular HGB Conc 31.3 g/dL (31.5-36.5); Mean Corpuscular Volume 97 fL (80-100); Mean Platelet Volume 9.8 fL (9.1-12.4); Platelet Count 182 K/mm3 (150-400); RDW Coefficient Variation 13.7 % (11.7-14.2); RDW Standard Deviation 48.9 fL (35.1-46.3); Red Blood Cell Count 3.42 M/mm3 (3.80-5.20); White Blood Cell Count 8.42 K/mm3 (4.00-11.30)
[2022-07-25 07:59] LABS: International Normalized Ratio 1.64; Prothrombin Time Results 16.7 Sec (9.7-11.5)
[2022-07-25 08:07] LABS: Bun/Creatinine Ratio 25.1 (12.0-20.0); Calcium, Blood 8.7 mg/dL (8.5-10.1); Creatinine, Blood 0.84 mg/dL (0.40-1.00); Potassium, Blood 4.3 mmol/L (3.5-5.5)
--- NOTE | 2022-07-25 10:24 | NUR ---
ROUNDING: DR MONK IN TO SEE PATIENT. PT STARTED ON SIPS OF CLEAR LIQUIDS.
[2022-07-25] MEDS ORDERED: TUMERIC PO (13:02)
[2022-07-25] MEDS ORDERED: CHONDROITIN PO (13:03)
--- NOTE | 2022-07-25 19:41 | NUR ---
PT HAS BEEN STABLE TODAY. HAD 1 LOOSE BM TODAY. PT ABDOMINAL PAIN IMPROVING BUT HAS SEVERE CHRONIC PAIN. DILAUDID EFFECTIVE. REPOSITIONING FREQUENTLY IN BED. PT ABLE TO GET TO CHAIR X1. STARTED ON SIPS OF CLEARS, MEDHAT WELL. NO NAUSEA. PT REMAINS ON 1L NC FOR NARCOTIC USE. HOME MEDS VERIFIED WITH CAREGIVER. SURGERY IN TO CONSULT WITH NO CHANGE IN PLAN OF CARE AT THIS TIME. PT USES CALL LIGHT APPROPRIATELY PRN.
[2022-07-26 06:11] LABS: Hematocrit 30.9 % (33.0-51.0); Hemoglobin 9.7 g/dL (11.5-16.0); Mean Corpuscular HGB 30.4 pg (26.0-34.0); Mean Corpuscular HGB Conc 31.4 g/dL (31.5-36.5); Mean Corpuscular Volume 97 fL (80-100); Mean Platelet Volume 10.5 fL (9.1-12.4); Platelet Count 154 K/mm3 (150-400); RDW Coefficient Variation 13.6 % (11.7-14.2); RDW Standard Deviation 48.8 fL (35.1-46.3); Red Blood Cell Count 3.19 M/mm3 (3.80-5.20); White Blood Cell Count 5.05 K/mm3 (4.00-11.30)
[2022-07-26 06:25] LABS: International Normalized Ratio 1.56; Prothrombin Time Results 15.9 Sec (9.7-11.5)
[2022-07-26 06:59] LABS: Albumin, Blood 2.7 g/dL (3.4-5.0); Anion Gap 2 mmol/L (6-16); Blood Urea Nitrogen 11 mg/dL (8-24); Bun/Creatinine Ratio 14.5 (12.0-20.0); CO2, Blood 28 mmol/L (21-32); Calcium, Blood 8.5 mg/dL (8.5-10.1); Chloride, Blood 106 mmol/L (98-108); Creatinine, Blood 0.76 mg/dL (0.40-1.00); Glomerular Filtration Rate 77 (60-); Glucose, Blood 95 mg/dL (70-99); Phosphorus, Blood 2.2 mg/dL (2.5-4.9); Potassium, Blood 3.9 mmol/L (3.5-5.5); Sodium, Blood 136 mmol/L (136-145)
--- NOTE | 2022-07-26 17:01 | NUR ---
SUMMARY NO ACUTE CHANGES T/O SHIFT. PT TOLERATING FULL LIQUID DIET. PASSING FLATUS. NO BM THIS SHIFT. CHRONIC BACK/LEG PAIN BIGGEST COMPLAINT. MEDICATED PER ORDERS AND POSITIONED FOR COMFORT. PLACED ICE PACK BRIEFLY TO LOWER BACK. CALL LIGHT IN REACH.
--- NOTE | 2022-07-26 19:22 | NUR ---
PAIN: PT CRYING IN PAIN, ALSO REPORTING MUSCLE SPASMS TO BLE. PT REP NO RELIEF W/CURRENT PAIN MED ORDERS. CALL PLACED TO HOSPITALIST, HOME MED ORDERS REV. NEW ORDERS TO CHANGE PAIN MED ORDERS TO HOME DOSAGE AND 1X DOSE OF FLEXARIL FOR SPASMS. WILL MEDICATE AND MONITOR FOR IMPROVEMENT.
--- NOTE | 2022-07-27 04:20 | NUR ---
THE PT HAS SLEPT WELL T/O THE NIGHT. VSS. THE PT HAS BEEN TOLLERATING PO INTAKE, NO N/V NOTED. PASSING FLATTUS REGULARLY, NO BMS THIS SHIFT. ORDERS OBTAINED FOR A OTD OF FLEXARIL, INCREASED DOSE OF FENT PATCH, AND INCREASED DOSE OF NORCO. PATIENT REPORTS BETTER PAIN MANAGEMENT SHE SLEPT T/O THE NIGHT AND WAS ABLE TO BE REPOSITIONED AND CHANGED MULTIPLE TIMES WITH MINIMAL C/O DISCOMFORT. PT IS CURRENTLY RESTING QUIETLY, DENIES ANY NEEDS. CALL LIGHT IN REACH.
[2022-07-27 04:56] LABS: BASOPHILS ABSOLUTE AUTO 0.02 K/mm3 (0.00-0.23); BASOPHILS PERCENT AUTO 0 % (0-2); EOSINOPHILS ABSOLUTE AUTO 0.11 K/mm3 (0.00-0.68); EOSINOPHILS PERCENT AUTO 2 % (0-6); Hematocrit 34.3 % (33.0-51.0); Hemoglobin 10.7 g/dL (11.5-16.0); IMMATURE GRAN ABSOLUTE AUTO 0.01 K/mm3 (0.00-0.10); IMMATURE GRAN PERCENT AUTO 0 % (0-1); LYMPHOCYTES ABSOLUTE AUTO 1.79 K/mm3 (0.84-5.20); LYMPHOCYTES PERCENT AUTO 31 % (21-46); MONOCYTES ABSOLUTE AUTO 0.42 K/mm3 (0.16-1.47); MONOCYTES PERCENT AUTO 7 % (4-13); Mean Corpuscular HGB 30.1 pg (26.0-34.0); Mean Corpuscular HGB Conc 31.2 g/dL (31.5-36.5); Mean Corpuscular Volume 96 fL (80-100); Mean Platelet Volume 10.4 fL (9.1-12.4); NEUTROPHILS ABSOLUTE AUTO 3.45 K/mm3 (1.96-9.15); NEUTROPHILS PERCENT AUTO 60 % (41-73); Platelet Count 182 K/mm3 (150-400); RDW Coefficient Variation 13.3 % (11.7-14.2); RDW Standard Deviation 47.6 fL (35.1-46.3); Red Blood Cell Count 3.56 M/mm3 (3.80-5.20)
[2022-07-27 05:10] LABS: International Normalized Ratio 1.55; Prothrombin Time Results 15.8 Sec (9.7-11.5)
[2022-07-27 05:18] LABS: Albumin, Blood 2.8 g/dL (3.4-5.0); Anion Gap 1 mmol/L (6-16); Blood Urea Nitrogen 10 mg/dL (8-24); Bun/Creatinine Ratio 12.8 (12.0-20.0); CO2, Blood 30 mmol/L (21-32); Calcium, Blood 9.1 mg/dL (8.5-10.1); Chloride, Blood 104 mmol/L (98-108); Creatinine, Blood 0.78 mg/dL (0.40-1.00); Glomerular Filtration Rate 75 (60-); Glucose, Blood 152 mg/dL (70-99); Sodium, Blood 135 mmol/L (136-145)
--- NOTE | 2022-07-27 08:15 | NUR ---
DR MONK AT BEDSIDE, GAVE VERBAL ORDERS TO HOLD WARFARIN TODAY.
--- NOTE | 2022-07-27 08:21 | NUR ---
PT TO OR AT APROX 08
--- NOTE | 2022-07-27 09:50 | NUR ---
PATIENT TO IMAGING VIA [facility]
--- NOTE | 2022-07-27 11:30 | NUR ---
PATIENT RETURNED TO ROOM FROM IMAGING. TRANSFERRED TO BED WITH SLIDER SHEET & 4 STAFF MEMBERS. TOLERATED WELL.
--- NOTE | 2022-07-27 12:15 | NUR ---
PATIENT TO IMAGING VIA [facility]
--- NOTE | 2022-07-27 13:05 | NUR ---
PATIENT RETURNED TO ROOM FROM IMAGING. 2P MOD-MAX ASSIST TO BSC.
--- NOTE | 2022-07-27 18:05 | NUR ---
SHIFT SUMMARY PATIENT IS S/P SBO THAT HAS POTENTIALLY RESOLVED, UNDERWENT SMALL BOWEL FOLLOW THROUGH TODAY AND HAD SUCCESSFUL RESULTS WITH LARGE AMOUNTS OF BM'S. PATIENT REPORTS RELIEF TO ABDOMEN ALTHOUGH HAS COMPLAINTS OF JOINT PAIN RELATED TO HER CHRONIC PAIN AND SCIATICA. FLEXERIL ADDED TO PAIN REGIMEN AND PATIENT REPORTS GREAT RELIEF WITH THAT, HOPEFUL TO GET LONG-TERM PRESCRIPTION AFTER DISCHARGE. PATIENT TRANSFERRED TO [facility]ULTIPLE TIMES T/O SHOFT, 2P MOD/MAX ASSIST. ATTENDS CHANGED PRN, SOME INCONTINTENT LIQUID BM'S. TOLERATING FULL LIQUID DIET WELL, DENIES N/V. CALLS APPROPRIATELY, WILL REPORT TO ONCOMING RN.
--- NOTE | 2022-07-28 04:18 | NUR ---
VSS. PT SLEPT WELL T/O THE NIGHT. THE PTS PAIN WAS CONTROLLED WITH SCHEDULED MEDICATION. THE PT WAS INCONTINENT OF VOIDS T/O THE NIGHT, BUT DID ATTEMPT TO USE THE BEDPAN EARLY IN THE SHIFT. TWO INCONTINENT BMS NOTED, SMALL AND LOOSE. THE PT C/O ABD CRAMPING RELATED TO BMS AND PASSING LARGE AMOUNTS OF FLATTUS. DIET PER ORDER IS ADVANCE TOLLERATED, THE PT HAS TOLLERATED CRACKERS AND FLUIDS WELL. THE PT IS CURRENTLY RESTING IN BED WATCHING TV, IN NO DISTRESS. CALL LIGHT IN REACH.
[2022-07-28 05:32] LABS: International Normalized Ratio 1.38; Prothrombin Time Results 14.2 Sec (9.7-11.5)
--- NOTE | 2022-07-28 17:11 | NUR ---
SHIFT SUMMARY PT AA0X4 TODAY PT REPORTS PAIN TOLERABLE DURING SHIFT WITH CURRENT REGIMEN. PAINFUL WITH TRANSFER TO BSC BUT USES WALKER WITH 2 PER ASSISTANCE. SLOW WITH MOVEMENT. PLAN IS TO AWAIT SNF BED AND PATIENT WILL DISCHARGE. NO BOWEL MOVEMENTS TODAY. CONTINENT OF URINE. TOLERATING PO WELL.
[2022-07-29 07:20] LABS: International Normalized Ratio 1.91; Prothrombin Time Results 19.2 Sec (9.7-11.5)
--- NOTE | 2022-07-29 10:44 | NUR ---
PT REPORTS FEELING LIGHT HEADED/NAUSEATED AFTER AND WHEN GETTING UP TO THE BEDSIDE COMMODE. PT DENIES NEED FOR ANTIEMETIC AND REPORTS SIPPING ON PEPSI IS HELPFUL. WILL CONTINUE TO MONITOR.
[2022-07-29 12:06] LABS: SARS-Cov-2 (COVID-19) PCR, MMC NEGATIVE (NEGATIVE)
--- NOTE | 2022-07-29 15:27 | NUR ---
DISCHARGE PT LEFT FOR [facility] AT APPROXIMATELY 1510. ATTEMPTED TO CALL REPORT AT 1458, PLACED ON HOLD AT WAITED UNTIL 1507 ON HOLD. HUNG UP AND CALLED AGAIN, NOTIFIED STAFF AT [facility] THAT THE PT WAS DISCHARGING AND WAS ATTEMPTING TO CALL REPORT AGAIN. PLACED ON HOLD UNTIL 1520. CALLED [facility] AGAIN AND LEFT NAME AND PHONE NUMBER FOR RN TO RETURN CALL. REPORT GIVEN AT 1558.
== END 2022-07-29 15:07 | disposition home or self-care (01) | DRG 389 ==
LOC: ER 09:04 → SURS 13:41
PROVIDERS: Internal Medicine; Nurse Practitioner Acute Care; Student in an Organized Health Care Education/Training Program; ADMIT Hospitalist
DX: K56.609 Unspecified intestinal obstruction, unspecified as to partial versus complete obstruction (principal); F11.20 Opioid dependence, uncomplicated; J96.11 Chronic respiratory failure with hypoxia; Z20.822 Contact with and (suspected) exposure to COVID-19; J44.9 Chronic obstructive pulmonary disease, unspecified; E03.9 Hypothyroidism, unspecified; B18.2 Chronic viral hepatitis C; I73.9 Peripheral vascular disease, unspecified; I12.9 Hypertensive chronic kidney disease with stage 1 through stage 4 chronic kidney disease, or unspecified chronic kidney disease; G25.81 Restless legs syndrome; G47.33 Obstructive sleep apnea (adult) (pediatric); G89.4 Chronic pain syndrome; M10.9 Gout, unspecified; F32.A Depression, unspecified; N18.30 Chronic kidney disease, stage 3 unspecified; I25.2 Old myocardial infarction; Z98.1 Arthrodesis status; Z90.710 Acquired absence of both cervix and uterus; Z90.722 Acquired absence of ovaries, bilateral; Z90.49 Acquired absence of other specified parts of digestive tract; Z88.0 Allergy status to penicillin; Z88.5 Allergy status to narcotic agent; Z88.8 Allergy status to other drugs, medicaments and biological substances; Z79.01 Long term (current) use of anticoagulants; Z79.899 Other long term (current) drug therapy
CPT/HCPCS: 36415; 74177; 74250; 80048; 80053; 80069; 83605; 83690; 85025; 85027; 85520; 85610; 85730; 86850; 86900; 86901; 93005; 93010; 94640; 94664; 94760; 94762; 96374-59; 96375; 96376; 97162; 97530; 99285-25; A9270; C9113; J1170; J1650; J2405; J7030; J7120; Q9967; U0004

== ENCOUNTER 2023-03-09 22:33 | Inpatient (IN) | payer OTHER ==
[~2023-03-09] VITALS: Ht 160 cm; Wt 70.9 kg
[~2023-03-09 22:33] MED LIST changes: +Bystolic2.5 MG PO; +CHONDROITIN PO; +FENTANYL1 EA12 TOP; -FENTANYL1 EAC7 TOP; -Prilosec Otc20 MG PO; +TUMERIC PO; +Vitamin D1000 UNI1 PO; -Vitamin D2000 UNIT PO
[2023-03-09 22:51] LABS: BASOPHILS ABSOLUTE AUTO 0.03 K/mm3 (0.00-0.23); BASOPHILS PERCENT AUTO 0 % (0-2); EOSINOPHILS ABSOLUTE AUTO 0.07 K/mm3 (0.00-0.68); EOSINOPHILS PERCENT AUTO 1 % (0-6); Hematocrit 38.4 % (33.0-51.0); Hemoglobin 12.7 g/dL (11.5-16.0); IMMATURE GRAN ABSOLUTE AUTO 0.03 K/mm3 (0.00-0.10); IMMATURE GRAN PERCENT AUTO 0 % (0-1); LYMPHOCYTES ABSOLUTE AUTO 3.11 K/mm3 (0.84-5.20); LYMPHOCYTES PERCENT AUTO 33 % (21-46); MONOCYTES ABSOLUTE AUTO 0.69 K/mm3 (0.16-1.47); MONOCYTES PERCENT AUTO 7 % (4-13); Mean Corpuscular HGB 30.5 pg (26.0-34.0); Mean Corpuscular HGB Conc 33.1 g/dL (31.5-36.5); Mean Corpuscular Volume 92 fL (80-100); Mean Platelet Volume 9.7 fL (9.1-12.4); NEUTROPHILS ABSOLUTE AUTO 5.51 K/mm3 (1.96-9.15); NEUTROPHILS PERCENT AUTO 59 % (41-73); Platelet Count 171 K/mm3 (150-400); RDW Coefficient Variation 13.2 % (11.7-14.2); RDW Standard Deviation 44.5 fL (35.1-46.3); Red Blood Cell Count 4.16 M/mm3 (3.80-5.20); White Blood Cell Count 9.44 K/mm3 (4.00-11.30)
[2023-03-09 23:06] LABS: International Normalized Ratio 3.82; Prothrombin Time Results 37.2 Sec (9.7-11.5)
[2023-03-09 23:11] LABS: Alanine Aminotransfer (ALT/SGP 18 U/L (12-78); Albumin, Blood 3.6 g/dL (3.4-5.0); Albumin/Globulin Ratio 1.1 (0.8-1.8); Alk Phos 73 U/L (50-136); Anion Gap 4 mmol/L (6-16); Aspartate Aminotrans (AST/SGOT 19 U/L (12-37); Bilirubin, Total 0.5 mg/dL (0.1-1.0); Blood Urea Nitrogen 17 mg/dL (8-24); Bun/Creatinine Ratio 19.3 (12.0-20.0); CO2, Blood 30 mmol/L (21-32); Calcium, Blood 9.3 mg/dL (8.5-10.1); Chloride, Blood 98 mmol/L (98-108); Creatinine, Blood 0.88 mg/dL (0.40-1.00); Ethanol (Alcohol), Blood, Med <3 mg/dL; Globulin, Blood 3.3 g/dL (2.2-4.0); Glomerular Filtration Rate 64 (60-); Glucose, Blood 149 mg/dL (70-99); Potassium, Blood 3.5 mmol/L (3.5-5.5); Sodium, Blood 132 mmol/L (136-145); Total Protein, Blood 6.9 g/dL (6.4-8.2)
[2023-03-09 23:53] LABS: Prolactin 2.1 ng/mL (2.74-19.64)
[2023-03-10 00:21] LABS: Source, Urine Straight Cath
[2023-03-10 00:31] LABS: Bilirubin, Urine Neg (Neg); Blood, Urine 3+ (Neg); Glucose Qualitative, Urine Neg (Neg); Ketones, Urine Neg (Neg); Leukocyte Esterase, Urine 1+ (Neg); Nitrite, Urine Neg (Neg); Protein, Urine 3+ (Neg); Specific Gravity, Urine 1.015 (1.003-1.022); Urobilinogen, Urine NORM (Normal)
[2023-03-10 00:52] LABS: Appearance, Urine Hazy (Clear); Color, Urine Yellow (P-Yellow)
[2023-03-10 00:54] LABS: Bacteria Many /hpf; Squamous Epithelial Cells Few /hpf (Few)
[2023-03-10 00:55] LABS: U Opiates Screen DETECTED
[2023-03-10 00:56] LABS: U Amphetamine Screen Not Detected; U Barbituate Screen Not Detected; U Benzodiazapine Screen Not Detected; U Buprenorphine Screen Not Detected; U Cannabinoids Screen Not Detected; U Cocaine Screen Not Detected; U Methadone Screen Not Detected; U Methamphetamine Screen Not Detected; U Oxycodone Screen Not Detected; U Phencyclidine Screen Not Detected; U Propoxyphene Screen Not Detected
[2023-03-10 01:16] VITALS: BP 154/77
[2023-03-10 02:59] LABS: Magnesium, Blood 1.7 mg/dL (1.6-2.4)
[2023-03-10 04:51] LABS: International Normalized Ratio 3.94; Prothrombin Time Results 38.3 Sec (9.7-11.5)
[2023-03-10 04:57] LABS: Albumin, Blood 3.4 g/dL (3.4-5.0); Bilirubin, Total 0.5 mg/dL (0.1-1.0); Bun/Creatinine Ratio 19.9 (12.0-20.0); Calcium, Blood 9.6 mg/dL (8.5-10.1); Creatinine, Blood 0.75 mg/dL (0.40-1.00); Globulin, Blood 3.3 g/dL (2.2-4.0); Potassium, Blood 3.5 mmol/L (3.5-5.5); Total Protein, Blood 6.7 g/dL (6.4-8.2)
[2023-03-10 07:48] VITALS: BP 147/56
--- NOTE | 2023-03-10 15:30 | NUR ---
PT RESTLESS AND PULLS AT CLOTHES AND LINES. PT CONTINUALLY PULLS OFF TELE STICKERS. PT DOES NOT KEEP GOWN ON. PT REASURED WITH THERAPUTIC LISTENING AND REMINDERS THAT SHE IS IN HOSPITAL AND SHE RECEIVING CARE. PT UNWRAPED IV BANDAGES SEVEAL TIMES AND EVENTUALLY PULLED OUT IV. DR. AVILA NOTIFIED AND STATED IV PLACEMENT COULD WAIT UNTIL MORNING PENDING URINE CULTURE WHEN PT COULD POSSIBLY BE SWITCHED TO ORAL ABX MEDICATIONS.
[2023-03-10 17:20] VITALS: BP 187/79
[2023-03-10 19:28] VITALS: BP 181/69
--- NOTE | 2023-03-10 19:34 | NUR ---
SHIFT SUMMARY PT SHOWED IMPOVING MENTAL STATUS T/O DAY. PT BECOME MORE ALERT AND ABLE TO GIVE SOME HISTORY. PT STILL SHOWS SIGNS OF CONFUSION. WHILE ASSISTING PT WITH DINNER, SHE WOULD ATTEMPT TO TAKE BITES OF HER PHONE. PT ALSO THOUGHT MOM WAS STILL ALIVE. PT CONTINUES TO PULL AT LINES EVEN WITH REMINDER AND BANDAGES COVERING IV LINES. PT C/O BOTTOM PAIN T/O DAY. FREQUENT REPOSITIONING AND SKIN CHECKS. PT ALSO COMPLAINED OF CHRONIC SHOULDER PAIN DT ARTHRITIS. MEDICATED PER EMAR. PT WENT FOR MRI IN AFTERNOON BUT WAS UNABLE TO HOLD STILL ENOUGH FOR PROCUDURE. FAMILY AT BEDSIDE FOR AFTERNOON WITH LOTS OF QUESTIONS AND CONCERNS. FAMILY WAS ABLE TO PROVIDE PAST HISTORY AND MEDICATION LIST. REPORT GIVEN TO LPN CARE MANAGER NURSE.
[2023-03-10] MEDS ORDERED: AMLO5 PO (20:06)
[2023-03-10] MEDS ORDERED: IRBE150 PO (20:15)
[2023-03-10 21:59] VITALS: BP 161/62
[2023-03-11 04:08] VITALS: BP 145/121
[2023-03-11 04:17] VITALS: BP 174/100
--- NOTE | 2023-03-11 04:20 | NUR ---
PT TRANSFERRED FROM [facility] AT ABOUT 0330. VITALS TAKEN DBP HIGH, WILL DISCUSS POSSIBLE MANAGEMENT WITH CHARGE NURSE. PUREWICK REMOVED IT WAS NON FUNCTIONAL AND CAUSING PT PAIN. CHANGED, REPOSITIONED PT. PT REPORTED BEING COMFORTABLE IN BED AFTER THIS. VERY RIGID LEGS, VERY UNCOMFORTABLE FOR HER TO SEPARATE LEGS OR STRAIGHTEN THEM. PT CONFUSED. WILL CONTINUE TO MONITOR. REMOTE MONITOR WATCHING PT. BED LOCKED IN LOWEST POSITION. SEIZURE PADS ON BED. CALL LIGHT WITHIN REACH. UNCLEAR THUS FAR IF PT USES CALL LIGHT.
[2023-03-11 05:25] LABS: Hematocrit 42.5 % (33.0-51.0); Hemoglobin 14.3 g/dL (11.5-16.0); Mean Corpuscular HGB 30.4 pg (26.0-34.0); Mean Corpuscular HGB Conc 33.6 g/dL (31.5-36.5); Mean Corpuscular Volume 90 fL (80-100); Mean Platelet Volume 9.4 fL (9.1-12.4); Platelet Count 188 K/mm3 (150-400); RDW Standard Deviation 42.8 fL (35.1-46.3)
[2023-03-11 05:38] LABS: International Normalized Ratio 3.46; Prothrombin Time Results 33.9 Sec (9.7-11.5)
[2023-03-11 05:45] LABS: Bun/Creatinine Ratio 18.4 (12.0-20.0); Calcium, Blood 9.6 mg/dL (8.5-10.1); Creatinine, Blood 0.65 mg/dL (0.40-1.00); Potassium, Blood 3.4 mmol/L (3.5-5.5)
[2023-03-11 07:54] VITALS: BP 172/86
[2023-03-11 15:32] VITALS: BP 144/87
--- NOTE | 2023-03-11 17:13 | NUR ---
SHIFT SUMMARY PATIENT IS ALERT BUT ORIENTED X3. PATIENT HAS BEEN MORE ALERT TODAY. PATIENT HAS HAD NO ACUTE EVENTS THIS SHIFT. VITAL SIGNS REVIEWED. PATIENT HAS PRN BP MEDICATIONS X1 FOR HYPERTENSION IN THE MORNING. PATIENT HAS NOT COMPLAINED OF PAIN, NAUSEA, SOB OR VOMITTING THIS SHIFT. PATIENTS GRANDDAUGHTER VISITED THE PATIENT MOST OF SHIFT. FAMILY UPDATED ON PLAN OF CARE. BED IN LOCKED AND LOWEST POSITION. CALL LIGHT IN PLACE. WILL MONITOR UNTIL SHIFT CHANGE.
[2023-03-11 19:30] VITALS: BP 142/61
[2023-03-12 02:39] VITALS: BP 100/86
[2023-03-12 05:41] LABS: International Normalized Ratio 1.81; Prothrombin Time Results 18.4 Sec (9.7-11.5)
--- NOTE | 2023-03-12 07:11 | NUR ---
Shift Summary Pt c/o of some anxiety early in the shift which was well managed by PRN antihistamine. She also had some pain, especially behind her knees. Repositioning and PRN tylenol managed pain well. Pt takes meds whole with applesauce. Incontinent, changed PRN. Bedrest. AOx3, pleasant and cooperative with care.
[2023-03-12 07:32] VITALS: BP 154/67
[2023-03-12] MEDS ORDERED: LEVE500 PO (11:21)
--- NOTE | 2023-03-12 14:52 | NUR ---
DISCHARGE: PT D/C @ 1450 VIA WHEELCHAIR WITH GRANDDAUGHTER AND GRANDDAUGHTERS . IV REMOVED W/O COMPLICATIONS. PT STATED THIS IS THE BEST SHE HAS EVER BEEN TAKEN CARE OF. CRYS FAXED TO [facility]. D/C PAPERS WENT OVER WITH PT AND GRANDDAUGHTER. BOTH STATED UNDERSTANDING OF D/C INSTRUCTIONS.
== END 2023-03-12 14:57 | disposition home or self-care (01) | DRG 101 ==
LOC: ER 22:33 → MEDS 22:34 → ER 03-10 00:28 → MEDS 03-10 00:28
PROVIDERS: Emergency Medicine; Family Medicine; Internal Medicine; ADMIT Internal Medicine
DX: R56.9 Unspecified convulsions (principal); N39.0 Urinary tract infection, site not specified; F11.20 Opioid dependence, uncomplicated; I44.0 Atrioventricular block, first degree; K21.9 Gastro-esophageal reflux disease without esophagitis; G25.81 Restless legs syndrome; J44.9 Chronic obstructive pulmonary disease, unspecified; I10 Essential (primary) hypertension; E03.9 Hypothyroidism, unspecified; M10.9 Gout, unspecified; M19.90 Unspecified osteoarthritis, unspecified site; G47.00 Insomnia, unspecified; G47.33 Obstructive sleep apnea (adult) (pediatric); I73.9 Peripheral vascular disease, unspecified; G89.4 Chronic pain syndrome; K59.00 Constipation, unspecified; F32.9 Major depressive disorder, single episode, unspecified; B96.20 Unspecified Escherichia coli [E. coli] as the cause of diseases classified elsewhere; Z90.49 Acquired absence of other specified parts of digestive tract; Z98.49 Cataract extraction status, unspecified eye; Z90.710 Acquired absence of both cervix and uterus; Z98.890 Other specified postprocedural states; Z87.81 Personal history of (healed) traumatic fracture; Z86.718 Personal history of other venous thrombosis and embolism; Z99.89 Dependence on other enabling machines and devices; Z79.01 Long term (current) use of anticoagulants; Z79.899 Other long term (current) drug therapy; Z91.81 History of falling; Z87.19 Personal history of other diseases of the digestive system; Z88.0 Allergy status to penicillin; Z88.5 Allergy status to narcotic agent; Z88.8 Allergy status to other drugs, medicaments and biological substances
CPT/HCPCS: 36415; 51701; 70450; 80048; 80053; 81001; 83605; 83735; 84146; 85025; 85027; 85610; 85730; 87077; 87086; 87186; 93005; 93010; 94640; 94664; 94760; 96375; 96376; 97110; 97112; 97162; 97530; 99285-25; A9270; G0378; G0480; J0696; J2060; J7030

== ENCOUNTER 2023-05-29 14:39 | Inpatient (IN) | payer OTHER ==
[~2023-05-29] VITALS: Ht 152.4 cm; Wt 72.9 kg
[~2023-05-29 14:39] MED LIST changes: +IRBE150 PO; +LEVE500 PO
[2023-05-29 14:54] LABS: Base Excess Venous 9.3 mmol/L; Bicarbonate Venous 30.4 mmol/L (24.0-30.0); PCO2 Venous 60.6 mmHg (38-42); pH Blood Venous 7.37 (7.34-7.37)
[2023-05-29 15:07] LABS: BASOPHILS ABSOLUTE AUTO 0.03 K/mm3 (0.00-0.23); BASOPHILS PERCENT AUTO 0 % (0-2); EOSINOPHILS ABSOLUTE AUTO 0.16 K/mm3 (0.00-0.68); EOSINOPHILS PERCENT AUTO 2 % (0-6); Hematocrit 40.6 % (33.0-51.0); Hemoglobin 13.4 g/dL (11.5-16.0); IMMATURE GRAN ABSOLUTE AUTO 0.02 K/mm3 (0.00-0.10); IMMATURE GRAN PERCENT AUTO 0 % (0-1); LYMPHOCYTES ABSOLUTE AUTO 2.69 K/mm3 (0.84-5.20); LYMPHOCYTES PERCENT AUTO 31 % (21-46); MONOCYTES ABSOLUTE AUTO 0.66 K/mm3 (0.16-1.47); MONOCYTES PERCENT AUTO 8 % (4-13); Mean Corpuscular HGB 31.2 pg (26.0-34.0); Mean Corpuscular Volume 94 fL (80-100); Mean Platelet Volume 10.1 fL (9.1-12.4); NEUTROPHILS ABSOLUTE AUTO 5.04 K/mm3 (1.96-9.15); NEUTROPHILS PERCENT AUTO 59 % (41-73); Platelet Count 193 K/mm3 (150-400); RDW Coefficient Variation 12.6 % (11.7-14.2); RDW Standard Deviation 42.9 fL (35.1-46.3)
[2023-05-29 15:26] LABS: Albumin, Blood 3.3 g/dL (3.4-5.0); Albumin/Globulin Ratio 0.9 (0.8-1.8); Bilirubin, Total 0.5 mg/dL (0.1-1.0); Bun/Creatinine Ratio 20.6 (12.0-20.0); Calcium, Blood 9.5 mg/dL (8.5-10.1); Creatinine, Blood 0.68 mg/dL (0.40-1.00); Globulin, Blood 3.6 g/dL (2.2-4.0); Magnesium, Blood 1.7 mg/dL (1.6-2.4); Potassium, Blood 3.7 mmol/L (3.5-5.5); Total Protein, Blood 6.9 g/dL (6.4-8.2)
[2023-05-29 15:53] LABS: Source, Urine Straight Cath
[2023-05-29 16:03] LABS: Appearance, Urine Hazy (Clear); Bilirubin, Urine Neg (Neg); Blood, Urine 5+ (Neg); Color, Urine Yellow (P-Yellow); Glucose Qualitative, Urine Neg (Neg); Ketones, Urine Neg (Neg); Leukocyte Esterase, Urine 3+ (Neg); Nitrite, Urine Pos (Neg); Protein, Urine 2+ (Neg); Urobilinogen, Urine NORM (Normal)
[2023-05-29 16:10] LABS: Bacteria Many /hpf; Squamous Epithelial Cells Mod /hpf (Few); Transitional Epithelial Cells Few /hpf (0-Rare); White Blood Cells, Urine 25-50 /hpf (0-5)
[2023-05-29 17:12] LABS: International Normalized Ratio 1.25
[2023-05-29 20:14] VITALS: BP 203/90
[2023-05-29 22:19] VITALS: BP 167/68
[2023-05-30 04:38] VITALS: BP 186/103
--- NOTE | 2023-05-30 04:54 | NUR ---
SHIFT SUMMARY NO ACUTE CHANGES DURING SHIFT. PT ALERT TO STIMULI, REMAINS NON VERBAL. PT REMAINS ON 2LNC. PT INCONTINENT, PUREWICK IN PLACE. PT PENDING ECHO, PT/OT/ST EVAL. HEAD CT COMPLETED AT 0400, PENDING RESULTS. BED ALARM ARMED FOR PATIENT SAFETY. WILL CONTINUE TO MONITOR. CALL LIGHT WITHIN REACH.
[2023-05-30 05:35] VITALS: BP 175/77
[2023-05-30 07:05] LABS: International Normalized Ratio 1.41; Prothrombin Time Results 14.5 Sec (9.7-11.5)
[2023-05-30 07:09] LABS: Albumin, Blood 3.1 g/dL (3.4-5.0); Albumin/Globulin Ratio 0.9 (0.8-1.8); Bilirubin, Total 0.4 mg/dL (0.1-1.0); Bun/Creatinine Ratio 26.8 (12.0-20.0); Calcium, Blood 9.4 mg/dL (8.5-10.1); Creatinine, Blood 0.52 mg/dL (0.40-1.00); Globulin, Blood 3.5 g/dL (2.2-4.0); Potassium, Blood 3.6 mmol/L (3.5-5.5); Total Protein, Blood 6.6 g/dL (6.4-8.2)
[2023-05-30 07:23] VITALS: BP 194/82
[2023-05-30 08:46] VITALS: BP 135/44
[2023-05-30] MEDS ORDERED: OMEP20ER PO (13:28)
--- NOTE | 2023-05-30 13:39 | NUR ---
Pt is an 87 year old female with history of aortic valve thrombosis, COPD, HTN, depression, hypothyroidism. 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 She is non-responsive, and has been since the stroke occured yesterday in her home with CG present. CG, who is also her granddaughter called 911 after consulting with her Aunt Ghazal, pt's daughter. Pt's daughter Ghazal is currently at pt's bedside. She states pt would not want to be resucitated, and elects to change pt's code status to DNR. She reports pt has expressed that to her for years, and likely has a POLST on file at PCP's office. She is planning to "watch and wait" for the next few days to see if there are any changes in pt's mentation. She reports the pt has been disabled since she was 47 years old, but doesn't clarify further at this time. Received v/o to change pt code status to DNR from Dr. Saul. Will continue to provide supportive visits to family for now.
[2023-05-30 15:00] VITALS: BP 197/68
--- NOTE | 2023-05-30 15:40 | NUR ---
SHIFT SUMMARY PT MOSTLY UNRESPONSIVE DURING SHIFT REPORT AND FOLLOWING. SOME AGITATION NOTED WITH L ARM MOVEMENT, ATTEMPTING TO PULL AT LINES AND TUBING. PT WILL MOVE L ARM WITH TACTILE STIMULI. R ARM FLACCID AND RLE STIFF WITH CONTRACTURE. IVF'S INFUSING PER EMAR. DR CASTILLO IN TO SEE PT THIS AM AND REPORTING UNABLE TO REACH ANY FAMILY AT NUMBERS PROVIDED. PT'S DAUGHTER AND , LATER IN TO SEE PT. PHONE NUMBERS UPDATED AND DR CASTILLO NOTIFIED. DR CASTILLO TO TO DISCUSS PLAN OF CARE AND CODE STATUS. PT TO BE CHANGED TO DNR, PER HER PRIOR WISHES AND NOW PER DAUGHTER. PALLIATIVE CARE NOTIFIED AND POLST COMPLETED. FAMILY LATER REPORTED PT BEING IN PAIN. PER FAMILY, PT HAS ARTHRITIS IN KNEES, LEGS, AND SHOULDER. MED LIST UPDATED WITH WHAT MEDICATIONS BROUGHT IN BY FAMILY. DR CASTILLO NOTIFIED FOR PAIN MEDICATION; NEW ORDERS PLACED. PT MEDICATED AND APPEARED TO REST MORE COMFORTABLY. PT NOT WANTING TO LEAVE O2 ON, PULLING OFF REPEATEDLY. FAMILY REMOVED O2 TUBING; PT'S BIOX AT 100% ON RA. FAMILY REPORTED PT DOES NOT WEAR O2. PT REFUSING TO ALLOW DENTURES TO BE REMOVED, CLAMPING MOUTH SHUT; FAMILY REQUESTED THEY BE LEFT IN AT THIS TIME. PT REPOSITIONED THRU OUT THE DAY. PUREWICK REMAINED IN PLACE MOST OF DAY AND THEN REMOVED TO DECREASE AGITATION. PT RESTING QUIETLY AT THIS TIME. CALL LT IN REACH. BED ALARM ON FOR SAFETY.
[2023-05-30 20:06] VITALS: BP 190/78
--- NOTE | 2023-05-31 04:03 | NUR ---
SCIENTIFIC PROCESS OPERATOR SUMMARY NO ACUTE EVENTS OVERNIGHT. PATIENT IS RESPONSIVE BUT NON-VERBAL. RIGHT-SIDED DEFICITS NOTED. Q2-HOUR TURING SCHEDULE MAINTAINED. NO SIGNS OR SYMPTOMS OF PAIN. PATIENT IS TOLERATING IV NS @75ML/HR. VSS. RR EVEN AND UNLABORED ON RA. TELE REVEALS SINUS RHYTHM, HR 80'S. BED LOW AND LOCKED. CALL LIGHT WITHIN REACH. INCREASED ROUNDING PERFORMED DUE TO PATIENT'S MENTATION. THIS RN WILL CONTINUE TO MONITOR.
[2023-05-31 04:16] VITALS: BP 129/102
[2023-05-31 04:36] VITALS: BP 158/106
[2023-05-31 05:26] LABS: BASOPHILS ABSOLUTE AUTO 0.02 K/mm3 (0.00-0.23); BASOPHILS PERCENT AUTO 0 % (0-2); EOSINOPHILS ABSOLUTE AUTO 0.01 K/mm3 (0.00-0.68); EOSINOPHILS PERCENT AUTO 0 % (0-6); Hematocrit 38.9 % (33.0-51.0); Hemoglobin 13.2 g/dL (11.5-16.0); IMMATURE GRAN ABSOLUTE AUTO 0.09 K/mm3 (0.00-0.10); IMMATURE GRAN PERCENT AUTO 1 % (0-1); LYMPHOCYTES ABSOLUTE AUTO 2.12 K/mm3 (0.84-5.20); LYMPHOCYTES PERCENT AUTO 12 % (21-46); MONOCYTES PERCENT AUTO 6 % (4-13); Mean Corpuscular HGB 30.6 pg (26.0-34.0); Mean Corpuscular HGB Conc 33.9 g/dL (31.5-36.5); Mean Corpuscular Volume 90 fL (80-100); NEUTROPHILS ABSOLUTE AUTO 13.94 K/mm3 (1.96-9.15); NEUTROPHILS PERCENT AUTO 81 % (41-73); RDW Coefficient Variation 12.9 % (11.7-14.2); RDW Standard Deviation 42.5 fL (35.1-46.3); Red Blood Cell Count 4.31 M/mm3 (3.80-5.20); White Blood Cell Count 17.18 K/mm3 (4.00-11.30)
[2023-05-31 05:34] LABS: Mean Platelet Volume 10.5 fL (9.1-12.4); Platelet Count 203 K/mm3 (150-400)
[2023-05-31 05:43] LABS: Bun/Creatinine Ratio 25.8 (12.0-20.0); Calcium, Blood 9.1 mg/dL (8.5-10.1); Creatinine, Blood 0.58 mg/dL (0.40-1.00); Potassium, Blood 3.8 mmol/L (3.5-5.5)
[2023-05-31 07:53] VITALS: BP 187/93
--- NOTE | 2023-05-31 17:27 | NUR ---
PT HAS BEEN RESTING COMFORTABLY. PT IS NEEDING REPOSITIONED EVERY COUPLE HOURS. PT HAS NOT BEEN OREINTED AT ALL TODAY. PT WAS PULLING AT THINGS AT TIMES AND HAD INCREASED RESPIRATIONS. PALLIATIVE CARE AND DR CASTILLO MEET WITH FAMILY AND DECISION WAS MADE FOR COMFORT CARE. PT WAS ABLE TO BE MADE COMFORTABLE PER NEW MEDS ON EMAR. PT IN INCONTENENT. WILL CONTINUE TO MONITOR. FAMILY INFORMED AT HOURLY ROUNDING OF HAZARD OF ITS THAT INGNITE AND PERSONAL RISK CAN OCCUR. FAMILYL VERBALIZED UNDERSTANDING.
[2023-05-31] MEDS ORDERED: HYDROCODONE-AC1 EAC7 PO (20:51)
--- NOTE | 2023-06-01 03:30 | NUR ---
DERRICK OPERATOR SUMMARY NO ACUTE EVENTS OVERNIGHT. PATIENT IS UNRESPONSIVE. NO SIGNS OF PAIN OR AGITATION. PATIENT APPEARS TO BE RESTING COMFORTABLY ON RA. BED LOW AND LOCKED. ROUNDING PERFORMED. THIS RN WILL CONTINUE TO MONITOR.
--- NOTE | 2023-06-01 10:06 | NUR ---
REPORT GIVEN TO HOSPICE NURSE THIS MORNING. SHE PLANS TO MEET THE FAMILY AT THE HOME. APPROX DISCHARGE TIME FOR 1030. IV REMOVED AT THIS TIME.
[2023-06-01] MEDS ORDERED: MORP20L SL (10:14)
[2023-06-01] MEDS ORDERED: LORA1 PO (10:15)
[2023-06-01] MEDS ORDERED: ONDA4ODT MM (10:15)
[2023-06-01] MEDS ORDERED: ATROPINE SULFATE2 M1 SL (10:15)
--- NOTE | 2023-06-01 11:31 | NUR ---
DISCHARGE PT DISCHARGED VIA AMBULANCE TO [facility]. REPOSITIONED EVERY 2 HOURS DURING SHIFT. MEDICATED PER EMAR. AIR HUNGER IMPROVED WITH ROXANOL. NO SIGNS OF ANXIETY NOTED. PT WOULD OPEN EYES AND TRACK. BELONGINGS SENT WITH TRANSPORT. FAMILY AND [facility] AT HOME TO MEET PATIENT.
== END 2023-06-01 11:31 | disposition hospice, home (50) | DRG 65 ==
LOC: ER 14:39 → MEDS 18:49 → ENPENDDIS 06-01 10:42 → MEDS 06-01 11:31
PROVIDERS: Internal Medicine; Nurse Practitioner Acute Care; Student in an Organized Health Care Education/Training Program; ADMIT Family Medicine
DX: I63.312 Cerebral infarction due to thrombosis of left middle cerebral artery (principal); G81.91 Hemiplegia, unspecified affecting right dominant side; R29.810 Facial weakness; I35.8 Other nonrheumatic aortic valve disorders; J44.9 Chronic obstructive pulmonary disease, unspecified; I10 Essential (primary) hypertension; E03.9 Hypothyroidism, unspecified; Z66 Do not resuscitate; Z51.5 Encounter for palliative care; M19.90 Unspecified osteoarthritis, unspecified site; I73.9 Peripheral vascular disease, unspecified; G47.33 Obstructive sleep apnea (adult) (pediatric); F32.A Depression, unspecified; G40.909 Epilepsy, unspecified, not intractable, without status epilepticus; R74.01 Elevation of levels of liver transaminase levels; G25.81 Restless legs syndrome; G89.4 Chronic pain syndrome; B96.20 Unspecified Escherichia coli [E. coli] as the cause of diseases classified elsewhere; B95.5 Unspecified streptococcus as the cause of diseases classified elsewhere; F11.21 Opioid dependence, in remission; Z80.0 Family history of malignant neoplasm of digestive organs; Z88.5 Allergy status to narcotic agent; Z88.8 Allergy status to other drugs, medicaments and biological substances; Z79.01 Long term (current) use of anticoagulants; Z79.890 Hormone replacement therapy; Z79.899 Other long term (current) drug therapy; Z87.19 Personal history of other diseases of the digestive system; Z90.49 Acquired absence of other specified parts of digestive tract; Z90.89 Acquired absence of other organs; Z90.710 Acquired absence of both cervix and uterus; Z90.79 Acquired absence of other genital organ(s); Z90.722 Acquired absence of ovaries, bilateral; Z98.890 Other specified postprocedural states; Z87.81 Personal history of (healed) traumatic fracture; Z86.39 Personal history of other endocrine, nutritional and metabolic disease
CPT/HCPCS: 36415; 70450; 70496; 70498; 71045; 80048; 80053; 81001; 82140; 82803; 83735; 84145; 84146; 85025; 85610; 87077; 87086; 87186; 93005; 93010; 93306; 94640; 94644; 94664; 94760; 96365; 96375; 99285-25; A9270; J0360; J0456; J0696; J1953; J2060; J2930; J3010; J7030; J7050; Q9967